=== PATIENT | female | born 1940 | race Caucasian/White ===

== ENCOUNTER 2017-04-17 23:20 | Inpatient (IN) | payer MEDICARE, BC ==
[~2017-04-17] VITALS: Ht 154.9 cm; Wt 81.8 kg
--- NOTE | ~2017-04-17 | DS ---
Unit #: [id number] #: [id number] Patient: INDRA DE LA O [id number] [address] [place], [place] [address] [id number] I MR#: [id number] NAME: INDRA DE LA O ROOM: 560 Age: 77 Sex: F Admission Date: 04/18/2017 : 1940 Discharge Date: 04/24/2017 Attending Physician: Poewr Moay M.D. Primary Care Physician: Albert Fatima M.D. DISCHARGE SUMMARY Discharge is pending a family meeting with Hospice. REASON FOR ADMISSION Confusion secondary to hypercapnia, TME. HISTORY OF PRESENT ILLNESS/HOSPITAL COURSE The patient is a 77-year-old female with underlying history of chronic respiratory failure on home O2 secondary to end stage COPD, anxiety and depression, was admitted secondary to mental status change. Please see H and P for complete details. Patient was subsequently admitted. A consultation was placed to pulmonary services. Dr. Burks and associates saw and evaluated that patient. She was initially placed on BiPAP in the ICU and gradually transitioned to O2 via nasal canal. She was also placed on routine IV antibiotics. Solu-Medrol, as well as aerosol treatments. Through her hospital course, she has shown improvement, has now reverted back to baseline. It seems likely that her mental status changes were secondary to chronic CO2 retention/hypercapnia. Overall secondary to patient's longstanding history of noncompliance with medications, as well as refusal of using oxygen and other routine medications, her prognosis is guarded at best. We did review possibilities of rehab at the time of discharge; however, physical and occupational therapy services stated patient is at her baseline and therefore, is safe to go home. I reviewed all options with the patient's daughter. I did notify her secondary to advanced age, chronic CO2 retention as well as compliance issues, that overall her prognosis is guarded at best and may be poor in her current living situation, therefore, she requested hospice evaluation to review home options as well. Her CO2 on BMP today at the time of discharge is 42, which likely represents her baseline on her last arterial blood gas performed on 04/19/2017. Her CO2 currently was at that time 59, this likely is close to her baseline as well. Please note, she did undergo a CT head noncontrast, which did not show any acute process. FINAL DISCHARGE DIAGNOSES 1. Acute on chronic respiratory failure. 2. Toxic metabolic encephalopathy, secondary to hypercapnia. 3. Chronic CO2 retention. 4. End stage chronic obstructive pulmonary disease. 5. Acute exacerbation of chronic obstructive pulmonary disease. 6. Benign essential tremor. 7. Longstanding history of noncompliance. Unit #: [id number] #: [id number] Patient: INDRA DE LA O 8. Anxiety. 9. Depression. 10. Failure to thrive. FINAL DISCHARGE MEDICATIONS 1. Prednisone 40 mg p.o. daily x5 days. 2. Albuterol aerosol solution q.4 p.r.n. 3. Lexapro 10 mg p.o. daily. 4. Primidone 25 mg p.o. b.i.d. 5. Trazodone 25 mg p.o. q.h.s. 6. Klonopin 0.5 mg p.o. b.i.d. p.r.n. 7. Singulair 10 mg p.o. daily. 8. Daliresp 500 mcg p.o. daily. 9. Pepcid 20 mg p.o. b.i.d. x5 days. 10. Tudorza 1 inhalation b.i.d. FINAL DISCHARGE CONDITION Stable. DISCHARGE DISPOSITION Home. Please note, Hospice services are planning to meet with patient's family later this afternoon to review various options including home with hospice. Patient is known to be of DNR status. Once Hospice services have met with family, the patient will be discharged home. Dictated by... Power Moya M.D. MAHI/mj TD: 04/25/2017 09:00 JOB #: [id number] DISCHARGE SUMMARY Page 1 of 1 X Power Moya MD X DISCHARGE SUMMARY
--- NOTE | ~2017-04-17 | HP ---
Unit #: [id number] #: [id number] Patient: INDRA DE LA O [id number] [address] [place], [place] [address] [id number] MR#: [id number] NAME: INDRA DE LA O ROOM: [facility] Age: 77 Sex: F Admission Date: 04/18/2017 : 1940 Attending Physician: Phyllis Lee M.D. Primary Care Physician: Albert Fatima M.D. HISTORY AND PHYSICAL CHIEF COMPLAINT Confusion secondary to hypercapnia. HISTORY This 77-year-old female with chronic respiratory failure secondary to COPD on home oxygen, anxiety, and depression is admitted for confusion. The patient has been increasing confused and a bit more short of breath for the past two days. She is noncompliant with her BiPAP. Yesterday, she was staring off in space and not taking p.o. She was brought to this emergency department late last evening where her ABG shows that her pH is 7.31 and she has a pCO2 of 101. BiPAP was applied and the patient is now much more awake and alert. Chest x-ray shows no acute disease, although patient has complained of a recent cough productive of some whitish sputum. On examination, her lungs just sound diminished. She was also given 125 mg of Solu-Medrol in the ER. PAST MEDICAL HISTORY 1. Severe COPD with chronic respiratory failure on 4 liters of oxygen. Patient is also prescribed BiPAP at night, which she currently is not using, i.e., noncompliant. 2. Anxiety and depression. 3. Essential tremor. ALLERGIES To penicillin. HOME MEDICATIONS 1. Singulair 10 mg daily. 2. Lexapro 20 mg daily. 3. Daliresp 500 mcg q.a.m. 4. KlonoPIN 0.5 mg t.i.d. 5. Trazodone 100 mg q.h.s. 6. Tudorza 1 puff b.i.d. 7. Ventolin inhaler as needed. FAMILY HISTORY CAD. SOCIAL HISTORY The patient lives with her son. She stopped smoking 20 years ago, but was a heavy smoker before that time. Does not drink alcohol. REVIEW OF SYSTEMS Unit #: [id number] #: [id number] Patient: INDRA DE LA O Difficult to obtain as the patient has BiPAP in place. PHYSICAL EXAMINATION GENERAL APPEARANCE: 77-year-old female who has an essential and somewhat resting tremor. VITAL SIGNS: Temperature 98.6, pulse 102, respirations 20, blood pressure 162/81, and O2 saturation currently is 99% on FIO2 of 50% on BiPAP. HEENT: Eyes: PERRLA. Extraocular muscles are intact. Pharynx: Dry mucosal membranes. NECK: Supple without adenopathy or thyromegaly. CHEST: Diminished breath sounds, but otherwise clear. CARDIAC: Normal S1 and S2 without S3, S4, or murmur. ABDOMEN: Bowels sounds are present. No hepatosplenomegaly, tenderness, or masses. EXTREMITIES: Without C, C, or E. Pedal pulses are present, but diminished. NEUROLOGIC: Patient is awake and alert. She is oriented x3. Her cranial nerves are intact. She does have an essential and resting tremor on exam, has equal strength throughout. DIAGNOSTIC STUDIES ADMISSION LABS: Hematocrit is 38.8, normal white count, and platelet count is 129. SMA-12 is notable for a glucose 124, sodium 146, chloride 92, and CO2 is 50. Normal BNP. Negative cardiac markers. Urinalysis with 5-10 red cells, 0-2 white cells, specific gravity 1.020, and 3+ ketones noted. IMAGING: Chest x-ray: COPD. Head CT shows mastoid opacification. CARDIOVASCULAR: EKG: Normal sinus rhythm, rate 98. Left axis deviation. ASSESSMENT 1. Confusion secondary to worsening hypercapnia. 2. Chronic obstructive pulmonary disease with chronic respiratory failure on home oxygen, but patient is not using her BiPAP at bedtime. 3. Anxiety and depression on KlonoPIN and trazodone. 4. Mild hypernatremia secondary to dehydration. 5. Tremor. PLANS 1. BiPAP, will decrease oxygen, continue steroids, write for doxycycline, bronchodilators, and ask pulmonary see in the morning. 2. DVT and gastritis prophylaxis. 3. Hypotonic IV fluids and repeat labs in the morning. Critical care time spent in evaluating this patient was 30 minutes. Dictated by Jake Crane/jono TD: 04/18/2017 05:06 JOB #: [id number] Unit #: [id number] #: [id number] Patient: INDRA DE LA O HISTORY AND PHYSICAL Page 1 of 1 X Phyllis Lee MD X HISTORY AND PHYSICAL
--- NOTE | ~2017-04-17 | CR72 ---
[facility] A Service [facility] RADIOLOGY TEXT RESULTS PATIENT: INDRA DE LA O LOCATION: [facility] 560 : 41 UNIT #: [id number] AGE: [address]: YOLANDA PIZARRO V SEX: F ORDER DR: [id number] [facility] [address] [facility]. [place], [place] [address] [id number] I MR#: [id number] #: [id number] NAME: INDRA DE LA O : 1940 SEX: F STUDY DATE/TIME: 04/18/2017 0:21 UNIT: CEDOF ROOM: [id number] STUDY DESCRIPTION: CR Chest Single View Portable Attending Physician: Phyllis Lee M.D. Ordering Physician: Bi Velasco D.O. Primary Care Physician: Albert Fatima M.D. MEDICAL IMAGING REPORT This report is preliminary unless electronic signature is present EXAM AP portable chest DATE 04/18/2017 HISTORY Shortness of breath with cough for 2 days. COMPARISON PA and lateral chest radiograph 10/03/2015. FINDINGS Upper lobes are hyperinflated and emphysematous. No acute airspace disease is identified. No pleural effusion or pneumothorax is evident. Chronic interstitial changes in the bases. Degenerative changes of the right shoulder. IMPRESSION Emphysematous changes. No acute cardiopulmonary findings. Dictated by... Maria Dolores Saab M.D. THIS IS AN ELECTRONICALLY VERIFIED REPORT Maria Dolores Saab M.D. at 04/21/2017 8:41 AM [facility] TD: 04/18/2017 03:47 JOB #: [id number] MEDICAL IMAGING REPORT [facility] A Service [facility] RADIOLOGY TEXT RESULTS PATIENT: INDRA DE LA O LOCATION: [facility] 560 : 41 UNIT #: [id number] AGE: [address]: YOLANDA PIZARRO V SEX: F ORDER DR: Page 1 of 1 COPY
--- NOTE | ~2017-04-17 | CO ---
Unit #: [id number] #: [id number] Patient: INDRA DE LA O [id number] [address] [place], [place] [address] [id number] I MR#: [id number] NAME: INDRA DE LA O ROOM: 560 Age: 77 Sex: F Admission Date: 04/18/2017 : 1940 Attending Physician: Yann Guardado M.D. Primary Care Physician: Albert Fatima M.D. CONSULTATION REPORT HISTORY OF PRESENT ILLNESS Ms. De La O is a 77-year-old, white female with a history of severe COPD with chronic hypoxemic hypercarbic respiratory failure who presented to the emergency room with confusion and altered mental status and more shortness of breath. She had been noncompliant with her BiPAP at home. Apparently, she was staring off in space and not taking in much p.o. She was brought to the emergency room and arterial blood gases revealed a pH of 7.31, pCO2 of 101, and a pO2 of 93 on 4 liters. Previous arterial blood gases done in September of 2014 revealed a pH of 7.33, pCO2 of 78, and pO2 of 128 on 4 liters. Sodium was 147 and creatinine was 0.4. White count 6,600, hematocrit 36.8, and platelet count 123,000. She is unable to give much history. She apparently has not had any fever or chills. Not really coughing much. Chest x-ray showed no infiltrate. CT scan showed nothing active. PAST MEDICAL HISTORY Severe COPD with hypoxemic hypercarbic respiratory failure maintained on 3-4 liters of oxygen at home, history of anxiety/depression, and some parts of the chart says essential tremor and others say Parkinson. ALLERGIES Penicillin. HOME MEDICINES 1. Singulair. 2. Lexapro. 3. Daliresp. 4. KlonoPIN. 5. Trazodone. 6. Tudorza. 7. Ventolin. She wears BiPAP at home, supposedly, but is not compliant. She was placed on this by Dr. Haywood. She has seen by Dr. Espinal in the past, but I do not think sees him in the office. FAMILY HISTORY Coronary artery disease. SOCIAL HISTORY Lives with son. Stopped smoking 20 years ago. Was a heavy smoker in the past. Does not drink alcohol. REVIEW OF SYSTEMS Unit #: [id number] #: [id number] Patient: INDRA DE LA O Unreliable. Patient confused. PHYSICAL EXAMINATION GENERAL APPEARANCE: White female, no distress, and is able to speak in sentences. Currently not wearing BiPAP. VITAL SIGNS: Blood pressure is 127/50, pulse is 84, respiratory rate 18, and afebrile. HEENT: Normocephalic and atraumatic. Pupils are equal, round, and reactive. Sclerae nonicteric. Nasal passages patent. Posterior pharynx clear. Mucous membranes moist. NECK: Supple. Trachea midline. No cervical or supraclavicular lymphadenopathy. LUNGS: Reveal diminished breath sounds bilaterally. Prolonged expiratory phase. CARDIAC: Heart sounds distant. Regular rate and rhythm. Could not appreciate murmur, rub, or gallop. ABDOMEN: Nontender. Bowel sounds present. EXTREMITIES: Without clubbing, cyanosis, or edema. NEURO: She is awake. She responds. She is confused. Moves all extremities. She is shaking. She has some cogwheeling. Rest tremor. SKIN: Warm and dry. PSYCH: Affect calm. DIAGNOSTIC STUDIES IMAGING: Chest x-ray personally reviewed, as noted. CT scan as noted. LABORATORY: Arterial blood gas is as noted. Current blood gases 7.37, pCO2 of 85, and pO2 of 133 on 4 liters nasal cannula. IMPRESSION 1. Acute on chronic hypoxemic hypercarbic respiratory failure. 2. Chronic obstructive pulmonary disease exacerbation. 3. Do not resuscitate status. 4. Toxic metabolic encephalopathy secondary to hypercarbia. 5. Tremor, question Parkinson. 6. Mild hypernatremia. PLAN Inhaled bronchodilators, steroids, antibiotics, BiPAP, (1) can move to tele bed. Patient is DNR per patient and family request. Place on DVT prophylaxis. Further recommendations pending this. Dictated by... Gus Burks M.D. RICHARD/jono TD: 04/19/2017 07:36 JOB #: [id number] Unit #: [id number] #: [id number] Patient: INDRA DE LA O CONSULTATION REPORT Page 1 of 1 X Gus Burks MD CONSULTATION REPORT
--- NOTE | ~2017-04-17 | EKG ---
PATIENT: INDRA DE LA O UNIT #: [id number] Ventricular Rate: 97 BPM Atrial Rate: 97 BPM P-R Interval: 122 ms QRS Duration: 76 ms Q-T Interval: 346 ms QTC Calculation(Bezet): 439 ms P [place]: 83 degrees Calculated R [place]: -37 degrees Calculated T [place]: 71 degrees Diagnosis Line: Normal sinus rhythm Diagnosis Line: Left axis deviation Diagnosis Line: Abnormal ECG Diagnosis Line: No previous ECGs available Diagnosis Line: Confirmed by ELIZABETH HATHAWAY MD ([id number]) on 04/19/2017 Diagnosis Line: 8:26:34 AM INTERPRETING MD: MAG SALCEDO
--- NOTE | ~2017-04-17 | CT71 ---
[facility] A Service [facility] RADIOLOGY TEXT RESULTS PATIENT: INDRA DE LA O LOCATION: C5 560- : 41 UNIT #: [id number] AGE: [address]: YOLANDA PIZARRO V SEX: F ORDER DR: [id number] [place] [id number] [facility]. [place], [place] [address] [id number] I MR#: [id number] #: [id number] NAME: INDRA DE LA O : 1940 SEX: F STUDY DATE/TIME: 04/18/2017 0:56 UNIT: CEDOF ROOM: 22976 STUDY DESCRIPTION: CT Head Wo Contrast Attending Physician: Phyllis Lee M.D. Ordering Physician: Bi Velasco D.O. Primary Care Physician: Albert Fatima M.D. MEDICAL IMAGING REPORT This report is preliminary unless electronic signature is present EXAM Noncontrast CT head. DATE 04/18/2017 HISTORY 77-year-old female with confusion, weakness, multiple falls and headaches for the past 2 days. COMPARISON None. FINDINGS This CT exam was performed with one or more of the following radiation dose reduction techniques: Automatic exposure control, adjustment of mA and/or kV according to patient size, and iterative reconstruction. There is partial opacification of the right mastoid air cells inferiorly. No acute displaced calvarial fracture is identified. Paranasal sinuses appear clear. There is mild age-appropriate parenchymal atrophy. Campbell matter-white matter junction distinction appears preserved without CT evidence of acute or evolving infarct. Ventricular configuration appears within normal limits. IMPRESSION 1. Partial right mastoid air cell opacification. Correlate for mastoiditis symptoms. 2. No acute intracranial findings. 3. Mild atrophy. [facility] A Service [facility] RADIOLOGY TEXT RESULTS PATIENT: INDRA DE LA O LOCATION: [facility] 560- : 41 UNIT #: [id number] AGE: [address]: YOLANDA PIZARRO V SEX: F ORDER DR: Dictated by... Maria Dolores Saab M.D. THIS IS AN ELECTRONICALLY VERIFIED REPORT Maria Dolores Saab M.D. at 04/21/2017 8:41 AM JUSTINO/keith TD: 04/18/2017 04:10 JOB #: [id number] MEDICAL IMAGING REPORT Page 1 of 1 COPY
[~2017-04-17 23:20] MED LIST: ALBUTEROL17 GM INH; ALL DAY ALLERGY10 M3 PO; ALLER-FEX180 MG PO; AZITHROMYCIN250 MG PO; CARBIDOPA PO; DALIRESP500 MCG PO; DESYREL100 MG PO; FERRO-TIME325 MG PO; FLAGYL PO; FLEXERIL10 MG PO; KLONOPIN0.5 MG PO; LEVAQUIN PO; LEVAQUIN750 M1 PO; LEXAPRO20 MG PO; MONTELUKAST SOD10 MG PO; PREDNISONE1 MG PO; SYMBICORT80 INH; TUDORZA PRESS400 MCG IH; TYLENOL325 M1 PO; XOPENEX1.25 MG/3 IH; [UNRECOGNIZED DRUG - OTHER] PO
[2017-04-17] MEDS ORDERED: KLONOPIN0.5 M3 PO (23:30)
[2017-04-17] MEDS ORDERED: DALIRESP500 MCG PO (23:30)
[2017-04-17] MEDS ORDERED: LEXAPRO20 MG PO (23:30)
[2017-04-17] MEDS ORDERED: MONTELUKAST SOD10 MG PO (23:30)
[2017-04-17] MEDS ORDERED: TUDORZA PRESS400 MCG INH (23:31)
[2017-04-17] MEDS ORDERED: TRAZODONE HCL100 MG PO (23:31)
[2017-04-17] MEDS ORDERED: ALBUTEROL17 GM INH (23:32)
[2017-04-18 01:09] LABS: POC - CKMB 1.2 ng/mL (0.0-7.9); POC - TROPONIN <0.05 ng/mL (<=0.05)
[2017-04-18 01:12] LABS: URINE SOURCE CATH
[2017-04-18 01:24] LABS: DIFF IND NO; EOSINOPHIL% 0.1 % (0.0-7.0); HEMATOCRIT 38.8 % (35.0-45.0); HEMOGLOBIN 12.5 gm/dL (12.0-16.0); LYMPHOCYTE# 0.8 X10e3 (1.0-3.5); LYMPHOCYTE% 12.9 % (17.0-45.0); MEAN CORPUSCULAR HEMOGLOBIN 29.5 PG (28-34); MEAN CORPUSCULAR HGB CONC 32.1 g/dL (30-36); MEAN PLATELET VOLUME 8.9 FL (6.5-11.5); MONOCYTE# 0.4 X10e3 (0-1.0); MONOCYTE% 5.5 % (3.0-12.0); NEUTROPHIL# 5.3 X10e3 (1.5-7.1); NEUTROPHIL% 81.5 % (40-75); PLATELET COUNT 129 X10e3 (140-420); RED BLOOD COUNT 4.22 X10e (3.90-5.30); RED CELL DISTRIBUTION WIDTH 13.5 % (11.0-15.5); URINE APPEARANCE CLEAR; URINE BILIRUBIN NEG (NEG); URINE BLOOD TRACE (NEG); URINE COLOR DK YELLOW; URINE GLUCOSE NEG (NEG); URINE KETONE 3+ (NEG); URINE LEUKOCYTE ESTERASE NEG (NEG); URINE NITRATE NEG (NEG); URINE PROTEIN 1+ (NEG); WHITE BLOOD COUNT 6.6 X10e3 (4.0-10.5)
[2017-04-18 01:26] LABS: URINE BACTERIA AUWI NEG (NEGATIVE); URINE SQUAMOUS EPITHELIAL CELL OCC /[HPF]; UWBCS1 AUWI 0-2 (0-5)
[2017-04-18 01:27] LABS: CULTURE INDICATED? NO
[2017-04-18 01:51] LABS: ALBUMIN SERUM 4.2 g/dL (3.5-5.0); ALKALINE PHOSPHATASE 68 U/L (32-92); ALT (SGPT) 14 U/L (10-40); AST (SGOT) 17 U/L (10-42); BILIRUBIN, DIRECT 0.1 mg/dL (0.0-0.2); BILIRUBIN,INDIRECT 0.7 mg/dL (0.0-0.9); BILIRUBIN,TOTAL 0.8 mg/dL (0.2-2.0); BLOOD UREA NITROGEN 12 mg/dL (9-23); CALCIUM SERUM 9.4 mg/dL (8.4-10.2); CARBON DIOXIDE 50 mmol/L (22-31); CHLORIDE 92 mmol/L (100-111); CREATININE SERUM <0.3 mg/dL (0.6-1.4); GLOM FILT RATE Estimated UNABLE TO CALCULATE mL/min (>60); GLUCOSE FASTING 124 mg/dL (70-110); POTASSIUM 3.9 mmol/L (3.5-5.1); PROTEIN TOTAL SERUM 7.3 g/dL (6.0-8.3); SODIUM 146 mmol/L (135-145)
[2017-04-18 02:06] LABS: PARTIAL THROMBOPLASTIN TIME 23.9 SECONDS (23.5-31.3); PROTHROMBIN TIME (PATIENT) 10.7 SECONDS (10.0-11.7)
[2017-04-18 02:09] LABS: ARTERIAL BLD GAS O2 SATURATION 95.5 % (90.0-100.0); ARTERIAL BLOOD GAS CARBOXY HB 1.2 %sat (0.0-9.0); ARTERIAL BLOOD GAS MET HB 0.7 %sat (0.0-2.0); ARTERIAL BLOOD GAS pH 7.312 (7.350-7.450)
[2017-04-18 02:12] LABS: ARTERIAL BLOOD GAS ALLEN TEST NORMAL; ARTERIAL BLOOD GAS ART SITE RIGHT RADIAL; ARTERIAL BLOOD GAS DELIVERY NASAL CANNULA; ARTERIAL DRAW? YES
[2017-04-18 05:23] LABS: ARTERIAL BLD GAS O2 SATURATION 98.1 % (90.0-100.0); ARTERIAL BLOOD GAS CARBOXY HB 1.1 %sat (0.0-9.0); ARTERIAL BLOOD GAS HCO3 49.4 mmol/L; ARTERIAL BLOOD GAS MET HB 0.5 %sat (0.0-2.0); ARTERIAL BLOOD GAS pH 7.371 (7.350-7.450)
[2017-04-18 05:24] LABS: ARTERIAL BLOOD GAS PCO2 85.5 mmHg (35.0-45.0)
[2017-04-18 05:25] LABS: ARTERIAL BLOOD GAS ALLEN TEST NORMAL; ARTERIAL BLOOD GAS ART SITE RIGHT RADIAL; ARTERIAL BLOOD GAS DELIVERY NASAL CANNULA; ARTERIAL DRAW? YES
[2017-04-18 05:42] LABS: HEMATOCRIT 36.8 % (35.0-45.0); HEMOGLOBIN 11.9 gm/dL (12.0-16.0); LYMPHOCYTE# 0.4 X10e3 (1.0-3.5); LYMPHOCYTE% 5.4 % (17.0-45.0); MEAN CELL VOLUME 92.1 FL (83-96); MEAN CORPUSCULAR HEMOGLOBIN 29.7 PG (28-34); MEAN CORPUSCULAR HGB CONC 32.3 g/dL (30-36); MEAN PLATELET VOLUME 8.5 FL (6.5-11.5); MONOCYTE% 0.6 % (3.0-12.0); NEUTROPHIL# 6.2 X10e3 (1.5-7.1); PLATELET COUNT 123 X10e3 (140-420); RED BLOOD COUNT 3.99 X10e (3.90-5.30); RED CELL DISTRIBUTION WIDTH 13.2 % (11.0-15.5); WHITE BLOOD COUNT 6.6 X10e3 (4.0-10.5)
[2017-04-18 05:49] LABS: DIFF IND NO
[2017-04-18 06:27] LABS: CALCIUM SERUM 9.8 mg/dL (8.4-10.2); CREATININE SERUM 0.4 mg/dL (0.6-1.4); GLOM FILT RATE Estimated 101.2 mL/min (>60); POTASSIUM 4.6 mmol/L (3.5-5.1)
[2017-04-19 11:44] LABS: ARTERIAL BLD GAS O2 SATURATION 95.4 % (90.0-100.0); ARTERIAL BLOOD GAS ALLEN TEST NORMAL; ARTERIAL BLOOD GAS ART SITE RIGHT RADIAL; ARTERIAL BLOOD GAS CARBOXY HB 1.2 %sat (0.0-9.0); ARTERIAL BLOOD GAS DELIVERY NASAL CANNULA; ARTERIAL BLOOD GAS HCO3 41.4 mmol/L; ARTERIAL BLOOD GAS MET HB 0.8 %sat (0.0-2.0); ARTERIAL BLOOD GAS PCO2 59.4 mmHg (35.0-45.0); ARTERIAL BLOOD GAS PO2 81.3 mmHg (80.0-100); ARTERIAL BLOOD GAS pH 7.452 (7.350-7.450); ARTERIAL DRAW? YES
[2017-04-19 15:08] LABS: HEMATOCRIT 36.7 % (35.0-45.0); HEMOGLOBIN 11.8 gm/dL (12.0-16.0)
[2017-04-20 11:36] LABS: CREATININE SERUM 0.4 mg/dL (0.6-1.4); GLOM FILT RATE Estimated 101.2 mL/min (>60); POTASSIUM 3.7 mmol/L (3.5-5.1)
[2017-04-22 05:39] LABS: HEMATOCRIT 41.1 % (35.0-45.0); HEMOGLOBIN 13.5 gm/dL (12.0-16.0); MEAN CORPUSCULAR HEMOGLOBIN 29.9 PG (28-34); MEAN CORPUSCULAR HGB CONC 32.9 g/dL (30-36); MEAN PLATELET VOLUME 8.6 FL (6.5-11.5); RED BLOOD COUNT 4.51 X10e (3.90-5.30); RED CELL DISTRIBUTION WIDTH 13.7 % (11.0-15.5); WHITE BLOOD COUNT 9.8 X10e3 (4.0-10.5)
[2017-04-22 06:36] LABS: CALCIUM SERUM 10.2 mg/dL (8.4-10.2); CREATININE SERUM 0.5 mg/dL (0.6-1.4); POTASSIUM 5.3 mmol/L (3.5-5.1)
[2017-04-23 05:13] LABS: HEMATOCRIT 36.8 % (35.0-45.0); HEMOGLOBIN 12.2 gm/dL (12.0-16.0); MEAN CELL VOLUME 90.2 FL (83-96); MEAN CORPUSCULAR HGB CONC 33.3 g/dL (30-36); MEAN PLATELET VOLUME 8.7 FL (6.5-11.5); RED BLOOD COUNT 4.08 X10e (3.90-5.30); RED CELL DISTRIBUTION WIDTH 13.3 % (11.0-15.5); WHITE BLOOD COUNT 8.1 X10e3 (4.0-10.5)
[2017-04-23 06:13] LABS: CALCIUM SERUM 9.6 mg/dL (8.4-10.2); CREATININE SERUM 0.4 mg/dL (0.6-1.4); GLOM FILT RATE Estimated 101.2 mL/min (>60); POTASSIUM 4.8 mmol/L (3.5-5.1)
[2017-04-24] MEDS ORDERED: ACETAMINOPHEN PO (07:32)
[2017-04-24] MEDS ORDERED: PRIMIDONE50 MG PO (07:33)
[2017-04-24] MEDS ORDERED: FAMOTIDINE20 M1 PO (07:34)
[2017-04-24] MEDS ORDERED: DOXYCYCLINE PO (07:47)
[2017-04-24] MEDS ORDERED: PREDNISONE PO (07:51)
== END 2017-04-24 13:17 | DRG 189 ==
LOC: CED 23:20 → CEDOF 04-18 03:07 → CED 04-18 03:07 → C5B 04-18 03:20 → CEDOF 04-18 03:20 → CICCU2 04-18 04:56 → CEDOF 04-18 04:56 → CICCU2 04-18 06:49 → C5B 04-18 17:35
PROVIDERS: Emergency Medicine; Family Medicine; Internal Medicine
DX: J96.22 Acute and chronic respiratory failure with hypercapnia (principal); G92 Toxic encephalopathy; E87.0 Hyperosmolality and hypernatremia; J44.1 Chronic obstructive pulmonary disease with (acute) exacerbation; Z99.81 Dependence on supplemental oxygen; F41.9 Anxiety disorder, unspecified; F32.9 Major depressive disorder, single episode, unspecified; G25.0 Essential tremor; Z88.0 Allergy status to penicillin; Z87.891 Personal history of nicotine dependence; J96.21 Acute and chronic respiratory failure with hypoxia; Z66 Do not resuscitate
CPT/HCPCS: 36415; 36600; 51701; 70450; 71010; 80048; 80076; 81003; 82553; 82803; 83880; 84484; 85014; 85018; 85025; 85027; 85610; 85730; 93005; 94640; 94660; 94664; 94760; 96374; 97110; 97116; 97163; 97166; 97530; 97535; 99285; G8978-GP; G8979-GP; G8987-GO; G8988-GO; J1120; J1650; J2405; J2920; J2930